=== PATIENT | male | born 1935 | race Caucasian/White ===

== ENCOUNTER 2017-04-02 05:24 | Inpatient (IN) | payer MEDICARE, MEDICAID ==
[~2017-04-02] VITALS: Ht 180.3 cm; Wt 105.7 kg
[2017-04-02 06:13] LABS: BASOPHILS % 0.7 % (0.0-2.0); EOSINOPHILS % 3.3 % (0.0-5.0); HEMATOCRIT. 44.3 % (42.0-52.0); HEMOGLOBIN. 15.6 g/dL (14.0-18.0); LYMPHOCYTES % 32.6 % (20.0-50.0); MEAN CORPUSCULAR HEMOGLOBIN 30.9 pg (28.0-32.0); MEAN CORPUSCULAR VOLUME 87.5 fL (80.0-94.0); MEAN PLATELET VOLUME 8.1 fl (7.4-10.4); MONOCYTES % 8.9 % (2.0-8.0); NEUTROPHILS % 54.5 % (40.0-76.0); PLATELET 143 x1000/uL (130-400); RED BLOOD CELL COUNT 5.06 mill/uL (4.7-6.1); RED CELL DISTRIBUTION WIDTH 13.6 % (11.6-14.6)
[2017-04-02 06:20] LABS: CHLORIDE 104 mEq/L (98-107)
[2017-04-02 06:26] LABS: CARBON DIOXIDE 29 mEq/L (21-32)
[2017-04-02] MEDS ORDERED: SODIUM CHLORIDE 0.9% 1,000 ML IV SCH (06:45)
[2017-04-02] MEDS ORDERED: MORPHINE SULFATE/PF 1MG/ML 10ML AMP ONE ×2 (07:34→07:56)
[2017-04-02] MEDS ORDERED: METHYLENE BLUE 50 MG/10 ML AMP IV ONE (07:34)
[2017-04-02] MEDS ORDERED: BUPIVACAINE/EPINEPHRINE/PF 0.25%/0.0005 30ML ONE (07:35)
[2017-04-02] MEDS ORDERED: EPINEPHRINE 1:1000 1 MG/ML AMP ONE (07:35)
[2017-04-02] MEDS ORDERED: BACITRACIN 50,000 UNITS/VIAL ONE (07:36)
[2017-04-02] MEDS ORDERED: NORMAL SALINE 0.9% 10 ML SYR ONE (07:37)
[2017-04-02] MEDS ORDERED: TRANEXAMIC ACID 1,000 MG in SODIUM CHLORIDE 0.9% 100 ML IV ONE (08:15)
[2017-04-02] MEDS ORDERED: VALS160T2 PO (08:45)
[2017-04-02] MEDS ORDERED: ASPI-1159 PO (08:45)
[2017-04-02] MEDS ORDERED: HYDR25TA PO (08:45)
[2017-04-02] MEDS ORDERED: CHOL20009 PO (08:45)
[2017-04-02] MEDS ORDERED: SIMV20TA6 PO (08:45)
[2017-04-02] MEDS ORDERED: HYDR-3735 PO (08:45)
[2017-04-02] MEDS ORDERED: RANI300T4 PO (08:45)
[2017-04-02] MEDS ORDERED: MELO-106 PO (08:45)
[2017-04-02] MEDS ORDERED: GENTAMICIN SULF 40MG/ML 2ML VIAL ONE (09:14)
[2017-04-02 09:23] LABS: CLARITY URINE CLEAR (CLEAR); COLOR URINE YELLOW (YELLOW); GLUCOSE URINE NEGATIVE (NEGATIVE); KETONES URINE NEGATIVE (NEGATIVE); LEUKOCYTE ESTERASE URINE NEGATIVE (NEGATIVE); NITRITE URINE NEGATIVE (NEGATIVE); OCCULT BLOOD URINE NEGATIVE (NEGATIVE); PROTEIN URINE NEGATIVE (NEGATIVE); UROBILINOGEN URINE 0.2 E.U./dL (0.2-1.0)
[2017-04-02] MEDS ORDERED: FENTANYL CITRATE/PF 50MCG/ML 2ML VIAL IV PRN (09:30)
[2017-04-02] MEDS ORDERED: ONDANSETRON HCL 4MG/2ML VIAL IV PRN ×2 (09:30→13:30)
[2017-04-02] MEDS ORDERED: ONDANSETRON INJ IV PRN (12:30)
[2017-04-02] MEDS ORDERED: DIPHENHYDRAMINE INJ IV PRN (12:30)
[2017-04-02] MEDS ORDERED: NALOXONE INJ IV PRN (12:30)
[2017-04-02] MEDS ORDERED: HYDROMORPHONE PCA 10MG/50ML IV PRN (12:30)
[2017-04-02] MEDS ORDERED: MAGNESIUM HYDROXIDE 400MG/5ML 30ML UDC PO PRN (13:30)
[2017-04-02] MEDS ORDERED: HYDROCODONE/ACETAMINOPHEN 5/325MG TABLET PO PRN (13:30)
[2017-04-02] MEDS ORDERED: ACETAMINOPHEN 325MG TABLET PO PRN (13:30)
[2017-04-02 15:04] VITALS: BP 130/94
[2017-04-02 15:05] VITALS: BP 130/94
[2017-04-02 16:00] VITALS: BP 130/94
[2017-04-02] MEDS ORDERED: INFLUENZA VIRUS VACCINE 0.5ML SYR IM ONE (16:00)
[2017-04-02] MEDS ORDERED: PNEUMOCOCCAL 23-VAL P-SAC VAC 0.5 ML IM ONE (16:00)
[2017-04-02] MEDS: DOCUSATE SODIUM 100MG CAPSULE PO SCH (17:14)
[2017-04-02] MEDS: CEFAZOLIN 2,000 MG in DEXT 5% WATER 100 ML IV SCH (17:14)
[2017-04-02 20:00] VITALS: BP 133/76
[2017-04-02] MEDS: FAMOTIDINE 20MG TABLET PO SCH (20:27)
[2017-04-02] MEDS: LOSARTAN POTASSIUM 50 MG TABLET PO SCH (20:27)
[2017-04-02] MEDS: HYDROCODONE/ACETAMINOPHEN 5/325MG TABLET PO PRN (20:28)
[2017-04-03] VITALS (7 sets, daily range): BP systolic 88–132; BP diastolic 53–81
[2017-04-03] MEDS: CEFAZOLIN 2,000 MG in DEXT 5% WATER 100 ML IV SCH (01:34)
[2017-04-03 06:25] LABS: BASOPHILS % 0.1 % (0.0-2.0); HEMATOCRIT. 34.8 % (42.0-52.0); HEMOGLOBIN. 12.1 g/dL (14.0-18.0); LYMPHOCYTES % 10.9 % (20.0-50.0); MEAN CORPUSCULAR HEMOGLOBIN 30.6 pg (28.0-32.0); MEAN CORPUSCULAR VOLUME 88.3 fL (80.0-94.0); MEAN PLATELET VOLUME 8.6 fl (7.4-10.4); MONOCYTES % 8.9 % (2.0-8.0); NEUTROPHILS % 80.1 % (40.0-76.0); PLATELET 118 x1000/uL (130-400); RED BLOOD CELL COUNT 3.94 mill/uL (4.7-6.1); RED CELL DISTRIBUTION WIDTH 13.5 % (11.6-14.6)
[2017-04-03 07:06] LABS: CARBON DIOXIDE 28 mEq/L (21-32); CHLORIDE 107 mEq/L (98-107)
[2017-04-03] MEDS: ASPIRIN 81MG EC TABLET PO SCH (08:01)
[2017-04-03] MEDS: FAMOTIDINE 20MG TABLET PO SCH ×2 (08:01→20:45)
[2017-04-03] MEDS: DOCUSATE SODIUM 100MG CAPSULE PO SCH ×2 (08:01→18:11)
[2017-04-03] MEDS: LOSARTAN POTASSIUM 50 MG TABLET PO SCH (08:01)
[2017-04-03] MEDS: HYDROCODONE/ACETAMINOPHEN 5/325MG TABLET PO PRN ×2 (08:01→20:46)
[2017-04-03] MEDS: HYDROCHLOROTHIAZIDE 25MG TABLET PO SCH (08:01)
[2017-04-03] MEDS: ENOXAPARIN 30MG/0.3ML SYR SUBCUT SCH ×2 (08:02→20:45)
[2017-04-04] VITALS (7 sets, daily range): BP systolic 103–120; BP diastolic 60–88
[2017-04-04] MEDS: HYDROCODONE/ACETAMINOPHEN 5/325MG TABLET PO PRN ×2 (04:19→08:52)
[2017-04-04] MEDS: DOCUSATE SODIUM 100MG CAPSULE PO SCH (08:51)
[2017-04-04] MEDS: ASPIRIN 81MG EC TABLET PO SCH (08:51)
[2017-04-04] MEDS: HYDROCHLOROTHIAZIDE 25MG TABLET PO SCH (08:51)
[2017-04-04] MEDS: FAMOTIDINE 20MG TABLET PO SCH (08:51)
[2017-04-04] MEDS: ENOXAPARIN 30MG/0.3ML SYR SUBCUT SCH (08:52)
[2017-04-04] MEDS: LOSARTAN POTASSIUM 50 MG TABLET PO SCH (08:53)
== END 2017-04-04 16:51 | disposition home or self-care (01) | DRG 470 ==
LOC: OR 05:24 → 8WST 14:47
PROVIDERS: ADMIT Orthopaedic Surgery; ATTEND Orthopaedic Surgery
PROC: 0SRC0J9 Replacement of Right Knee Joint with Synthetic Substitute, Cemented, Open Approach (ICD-10-PCS; principal; 2017-04-02 07:30)
DX: M17.0 Bilateral primary osteoarthritis of knee (principal); I48.2 Chronic atrial fibrillation; E78.5 Hyperlipidemia, unspecified; I10 Essential (primary) hypertension; M21.161 Varus deformity, not elsewhere classified, right knee; E66.3 Overweight; G89.29 Other chronic pain; M65.9 Synovitis and tenosynovitis, unspecified; Z68.32 Body mass index [BMI] 32.0-32.9, adult; Z98.49 Cataract extraction status, unspecified eye; Z91.040 Latex allergy status
CPT/HCPCS: 36415; 73560; 80048; 81003; 82962; 85025; 86850; 86900; 86920; 88305; 88311; 90686; 90732; 93970; 97110; 97116; 97162; 97530; A4216; J0171; J0690; J1580; J1650; J2274; J3490; J7030; J7050; J7060; Q9968